=== PATIENT | female | born 1935 | race Caucasian/White ===

== ENCOUNTER 2016-11-17 13:28 | Emergency (ER) | payer MEDICARE, BC ==
[2016-11-17 14:13] VITALS: BP 146/74
--- NOTE | 2016-11-17 14:26 | UC ---
Skin Complaint HPI - HPI Summary HPI Summary: 2 DAYS OF SWELLING UNDER LEFT SIDE OF JAW. SEEMS TO WORSEN AFTER EATING THEN CALMS DOWN. NO FEVER. PAIN IS MILD. NO DIFFICULTY SWALLOWING OR BREATHING. IS NOT TAKING ANY ANTIHISTAMINES OR DECONGESTANTS. - History of Current Complaint Chief Complaint: UCGeneralIllness Time Seen by Provider: 11/17/16 14:11 Stated Complaint: NECK SWELLING Hx Obtained From: Patient Onset/Duration: Gradual Onset, Lasting Days, Still Present Timing: Constant - BUT WORSENS AFTER EATING Onset Severity: Mild Current Severity: Mild Pain Intensity: 2 Pain Scale Used: 0-10 Numeric Location: Discrete - UNDER LEFT JAW Character: Swelling, Pain Aggravating: Touch, Other - EATING Alleviating: Nothing Associated Signs & Symptoms: Positive: Tenderness - Allergy/Home Medications Allergies/Adverse Reactions: Allergies Allergy/AdvReac Type Severity Reaction Status Date / Time No Known Allergies Allergy Verified 11/17/16 13:44 Review of Systems Constitutional: Negative Skin: Negative ENT: Other - SWELLING UNDER LEFT JAW Respiratory: Negative Cardiovascular: Negative Gastrointestinal: Negative All Other Systems Reviewed And Are Negative: Yes PMH/Surg Hx/FS Hx/Imm Hx Cardiovascular History Of: Reports: Hypertension - ON DAILY MEDS - Surgical History Surgical History: Yes Surgery Procedure, Year, and Place: YOUNG CHILD T&A [facility]. [place] [facility] [place] Family History Known Family History: Positive: Hypertension - Social History Alcohol Use: None Substance Use Type: None Smoking Status (MU): Never Smoked Tobacco Physical Exam Triage Information Reviewed: Yes Appearance: Well-Appearing, No Pain Distress, Well-Nourished Vital Signs: Initial Vital Signs Temp 97.8 F 11/17/16 13:44 Pulse 85 11/17/16 13:44 Resp 16 11/17/16 13:44 BP 146/74 11/17/16 13:44 Pulse Ox 100 11/17/16 13:44 Vital Signs Reviewed: Yes Eyes: Positive: Conjunctiva Clear ENT: Positive: Hearing grossly normal, Other: - MILDLY TENDER ENLARGED LEFT SUBMANDIBULAR SALIVARY GLAND Neck: Positive: Supple Respiratory: Positive: No respiratory distress, No accessory muscle use Cardiovascular: Positive: Pulses Normal Abdomen Description: Positive: Soft Musculoskeletal: Positive: No Edema Neurological: Positive: Alert Psychological: Positive: Age Appropriate Behavior Skin: Negative: rashes Course/Dx - Diagnoses Provider Diagnoses: LEFT SUBMANDIBULAR SIALADENITIS Discharge - Discharge Plan Condition: Stable Disposition: HOME Patient Education Materials: Sialoadenitis (ED) Referrals: Barbara Montano MD [Primary Care Provider] - If Needed Additional Instructions: SIALADENITIS/SIALOLITHIASIS (SALIVARY GLAND STONE) Salivary gland stones primarily are found in the three major salivary glands: parotid, submandibular, and sublingual. Eighty to 90 percent of stones arise from the submandibular glands. Dehydration, anticholinergic medications (such as antihistamines), and trauma are felt to predispose to the formation of stones. Sialolithiasis typically presents with pain and swelling, though painless swelling may occur. Conservative management is the initial mainstay of treatment in primary care; patients should be instructed to: - keep well hydrated - apply moist heat to the involved area - massage the gland, "milk" the duct - suck on tart hard candies to promote salivary flow (lemon drops). - ensure good oral hygiene Pain should be managed with NSAIDs or occasionally opioid analgesics. Anticholinergic medications should be discontinued when possible (eg. antihistamines, decongestants). Patients with symptoms persisting for more than a few days should be referred for specialist management. CALL ENT TODAY TO MAKE AN APPT FOR NEXT WEEK. IF YOUR SYMPTOMS RESOLVE OVER THE WEEKEND YOU CAN CANCEL YOUR APPT. ENT IN [place] [address] [facility] [phone]
== END 2016-11-17 14:37 | disposition home or self-care (01) ==
LOC: UCEAST 13:28
DX: K11.20 Sialoadenitis, unspecified (principal); I10 Essential (primary) hypertension; Z98.42 Cataract extraction status, left eye; Z98.41 Cataract extraction status, right eye
CPT/HCPCS: 99211; G0463

== ENCOUNTER 2017-04-25 04:27 | Emergency (ER) | payer MEDICARE, BC ==
[2017-04-25] MEDS ORDERED: NS 0.9% 1000 ML* 1,000 ML IV ONE (06:36)
[2017-04-25] MEDS ORDERED: Morphine INJ* 4 MG/ML 1 ML CARPUJECT IV ONE (07:05)
[2017-04-25] MEDS ORDERED: Ondansetron INJ* 2 MG/ML VIAL IV ONE (07:05)
--- NOTE | 2017-04-25 07:12 | ED ---
Lamine Sparks Rebecca, scribed for Rhys Nunes MD on 04/25/17 at 0603 . Abdominal Pain/Female - HPI Summary HPI Summary: Pt is an 82 y/o F BIBA who presents to ED c/o RLQ abdominal pain. Sx began at 0130 and pain is currently severe, ranked 8/10. Pain radiates to the R flank and is characterized as an ache in the flank, described as being "inside." Sx aggravated and alleviated by nothing, unchanged by movement. Additionally c/o N/ V and increased urinary frequency. Denies fever, dysuria, hematuria and dark urine. No PSHx on the abdomen. PMHx kidney stones - one episode about 35 years ago. - History of Current Complaint Chief Complaint: EDAbdPain Stated Complaint: RIGHT FLANK PAIN Hx Obtained From: Patient Onset/Duration: Lasting Hours, Still Present Severity Currently: Severe Pain Intensity: 8 Pain Scale Used: 0-10 Numeric Location: Discrete At: RLQ Radiates: Yes Radiates to: Flank - Right Aggravating Factor(s): Nothing Alleviating Factor(s): Nothing Associated Signs and Symptoms: Positive: Urinary Symptoms - increased urinary frequency, Nausea, Vomiting. Negative: Fever Allergies/Adverse Reactions: Allergies Allergy/AdvReac Type Severity Reaction Status Date / Time No Known Allergies Allergy Verified 11/17/16 13:44 PMH/Surg Hx/FS Hx/Imm Hx Cardiovascular History: Reports: Hx Hypertension - ON DAILY MEDS, Hx Peripheral Vascular Disease - ON DAILY MEDS, FOLLOWED BY DR [facility] History: Reports: Hx Kidney Stones Musculoskeletal History: Reports: Hx Arthritis - HANDS,, Other Musculoskeletal History - Hx OF PAIN IN LEG, SCIATIC NERVE, SEES CHIROPRACTOR MONTHLY Sensory History: Reports: Hx Cataracts - 2006 BILATERAL CATERACT EXTRACTION [facility] , Hx Contacts or Glasses - GLASSES, Hx Hearing Aid - BILATERAL, WILL NOT WEAR DAY OF SURGERY Opthamlomology History: Reports: Hx Cataracts - 2006 BILATERAL CATERACT EXTRACTION [facility], Hx Contacts or Glasses - GLASSES - Cancer History Hx Chemotherapy: No Hx Radiation Therapy: No - Surgical History Surgery Procedure, Year, and Place: YOUNG CHILD T&A [facility]. 2006 BILATERAL CATARACT EXTRACTION [facility] Hx Anesthesia Reactions: No - Immunization History Date of Influenza Vaccine: 03/26/2017 Infectious Disease History: No Infectious Disease History: Denies: History Other Infectious Disease, Traveled Outside the [place] in Last 30 Days - Family History Known Family History: Positive: Hypertension - Social History Alcohol Use: None Substance Use Type: Reports: None Smoking Status (MU): Never Smoked Tobacco Review of Systems Negative: Fever Positive: Abdominal Pain, Vomiting, Nausea Positive: frequency - Increased urinary frequency, flank pain - Right, other - Negative: Dark urine. Negative: dysuria, hematuria All Other Systems Reviewed And Are Negative: Yes Physical Exam - Summary Physical Exam Summary: Appearance: Well-appearing, Well-nourished Skin: Warm, dry Eyes: Normal ENT: Normal, moist mucous membranes Neck: Supple, nontender Respiratory: Clear to auscultation Cardiovascular: Normal, pulses are symmetrical and equal bilaterally Abdomen: Soft, mild tenderness to palpation of the RLQ, negative psoas, rovsing' s and obturator's signs, negative suprapubic tenderness to palpation Bowel: Present Musculoskeletal: Normal, Strength/ROM Intact Neurological: Normal, Alert, Oriented to Person Psychiatric: Normal Triage Information Reviewed: Yes Vital Signs On Initial Exam: Initial Vitals Temp Pulse Resp BP Pulse Ox 98.1 F 88 16 169/65 94 04/25/17 04:32 04/25/17 04:32 04/25/17 04:32 04/25/17 04:32 04/25/17 04:32 Vital Signs Reviewed: Yes - Chiquis Coma Scale Coma Scale Total: 15 Diagnostics - Vital Signs Vital Signs Temp Pulse Resp BP Pulse Ox 04/25/17 05:30 92 146/56 95 04/25/17 05:00 90 156/59 94 04/25/17 04:36 88 94 04/25/17 04:34 169/65 04/25/17 04:32 98.1 F 88 16 169/65 94 - Laboratory Result Diagrams: 04/25/17 06:55 Lab Statement: Any lab studies that have been ordered have been reviewed, and results considered in the medical decision making process. Abdominal Pain Fem Course/Dx - Diagnoses Provider Diagnoses: Abdominal pain Discharge - Discharge Plan Condition: Stable Disposition: OTHER Discharge Disposition Comment: signed out to Dr Her pending CT abd Referrals: Barbara Montano MD [Primary Care Provider] - The documentation as recorded by the Lamine lopez Rebecca accurately reflects the service I personally performed and the decisions made by , Rhys Nunes MD.
[2017-04-25 07:15] LABS: Hematocrit 40 % (35-47); Hemoglobin 13.4 g/dl (12.0-16.0); Mean Corpuscular HGB Conc 34 g/dl (31-36); Mean Corpuscular Hemoglobin 32 pg (27-31); Mean Corpuscular Volume 96 fL (80-97); Mean Platelet Volume 8 um3 (7.4-10.4); Red Blood Count 4.16 10^6/ul (4.0-5.4); Red Cell Distribution Width 14 % (10.5-15); White Blood Count 12.7 10^3/ul (3.5-10.8)
[2017-04-25 07:41] LABS: ALT 16 U/L (7-52); AST 15 U/L (13-39); Alkaline Phosphatase 60 U/L (34-104); Amylase 70 U/L (29-103); Anion Gap 7 mmol/L (2-11); BUN/Creatinine Ratio 23.5 (8-20); Blood Urea Nitrogen 27 mg/dL (6-24); CO2 Carbon Dioxide 28 mmol/L (22-32); Calcium 9.4 mg/dL (8.6-10.3); Chloride 104 mmol/L (101-111); EGFR African American 57.8 (>60); Glucose 129 mg/dL (70-100); Lipase < 10 U/L (11.0-82.0); Magnesium 2.1 mg/dL (1.9-2.7); Potassium 4.2 mmol/L (3.5-5.0); Sodium 139 mmol/L (133-145)
[2017-04-25 07:43] LABS: Troponin I 0.01 ng/mL (<0.04)
[2017-04-25] MEDS ORDERED: Iodixanol* (CONTRAST) 320 MG/ML 100 ML SDV IV ONE (07:48)
[2017-04-25 08:38] LABS: Urine Bacteria 3+ (Absent); Urine Bilirubin Negative (Negative); Urine Glucose Negative (Negative); Urine Nitrite Negative (Negative)
--- NOTE | 2017-04-25 08:39 | RAD ---
INDICATION: Right flank pain COMPARISON: None. TECHNIQUE: Single AP portable view of the chest was obtained. FINDINGS: Image quality is compromised due to the relative inferiority of a portable chest x-ray. The heart and mediastinum exhibit normal size and contour. The lungs are grossly clear. There is no evidence of a large pleural effusion. Visualized bones are normal for the patient's age. IMPRESSION: No radiographic evidence for acute cardiopulmonary abnormality on this portable chest x-ray.
--- NOTE | 2017-04-25 09:22 | RAD ---
INDICATION: RIGHT lower quadrant pain radiates to the RIGHT flank. COMPARISON: April 02, 2007 TECHNIQUE: Multidetector CT images were obtained from the lung bases to the ischial tuberosities with 76 mL Visipaque 320 IV and oral contrast. Multiplanar reformation. REPORT: Moderately large hiatal hernia with interval increase in size without mural thickening or perienteric inflammatory change. Associated mild compressive atelectasis at the medial lung bases as well as anterior displacement of the heart. Negative for cardiomegaly or pericardial effusion. Small number of grossly unchanged simple cysts of the liver with dominant 1.8 cm cyst at the RIGHT posterior hepatic segment at the dome and 1.2 cm cyst in the subcapsular anterior margin of the LEFT lateral hepatic segment adjacent to the fissure for the ligamentum teres. No suspicious hepatic lesions or biliary dilatation. Normal variant phrygian cap at the gallbladder. Suggestion of stones within the fundus of the gallbladder. Unremarkable pancreas and spleen. Aside from the hiatal hernia the upper GI is unremarkable. Unremarkable small bowel and retrocecal appendix. Severe colonic diverticulosis primarily at the sigmoid colon without findings of acute diverticulitis. Negative for ascites, free air, or significant hernias. Normal adrenal glands. Mild RIGHT hydronephrosis is traced to a 3 mm stone at the proximal ureter. Mild LEFT hydroureteronephrosis without definitive LEFT ureteral stone. Suggestion of focal soft tissue density at the distal segment of the LEFT ureter concerning for a potential uroepithelial lesion reference axial images 60-63. Mild RIGHT asymmetric perinephric inflammatory stranding. No suspicious focal renal lesions. Unremarkable partially distended urinary bladder. 3.8 cm fibroid at the anteverted uterus without gross change. Unremarkable adnexal regions. Negative for lymphadenopathy. Atherosclerotic plaque without aneurysm of the abdominal aorta or iliac arteries. Physiologic distention of the IVC. Unchanged bone island at the RIGHT sacral ala. Negative for suspicious focal osseous lesions. IMPRESSION: 1. Mild RIGHT hydronephrosis is traced to a 3 mm stone at the proximal ureter. 2. Suggestion of focal soft tissue density at the distal segment of the LEFT ureter concerning for a potential uroepithelial lesion reference axial images 60-63. Consider ureteroscopy or CT urogram for further assessment.
[2017-04-25] MEDS ORDERED: Ciprofloxacin TAB* 500 MG PO ONE (10:17)
[2017-04-25 10:33] VITALS: BP 136/71
--- NOTE | 2017-04-26 08:25 | ED ---
Puma Sparks Angela, scribed for Holden Mckeon MD on 04/25/17 at 0705 . Progress - Progress Note Progress Note: Pt is an 82 y/o female BIBA who presents to [facility] c/o RLQ abdominal pain that began at 0130. This pt was signed out from Dr. Nunes, pending disposition, awaiting chest XR and CT abdomen/pelvis. Pt has PMHx of kidney stones (a very long time ago). She is unsure if this pain feels similar to prior episode of kidney stones. Pt states that she was feeling nauseous and vomited [employer]. She denies fever. Pt will be discharged to home in stable condition with a diagnosis of kidney stones and UTI. - Results/Orders Results/Orders: Chest XR, per radiologist: IMPRESSION: no radiographic evidence for acute cardiopulmonary abnormality on this portable chest x-ray. ED physician has reviewed this radiology report and agrees. CT Abdomen/Pelvis, per radiologist: IMPRESSION: 1. Mild RIGHT hydronephrosis is traced to a 3 mm stone at the proximal ureter. 2. Suggestion of focal soft tissue density at the distal segment of the LEFT ureter concerning for a potential uroepithelial lesion reference axial images 60 -63. Consider ureteroscopy or CT urogram for further assessment. ED physician has reviewed this radiology report and agrees. Re-Evaluation - Re-Evaluation First Eval Re-Evaluation Time: 07:59 Comment: Pt reports feeling better after pain medication. On physical exam, pt has no tenderness right now. Pt is sitting comfortably in the stretcher, drinking contrast. Second Eval Re-Evaluation Time: 10:18 Comment: I reviewed the XR and CT abdomen/pelvis results with the pt. Course/Dx - Course Course Of Treatment: Pt is an 82 y/o female BIBA who presents to [facility] c/o RLQ abdominal pain that began at 0130. This pt was signed out from Dr. Nunes, pending disposition, awaiting chest XR and CT abdomen/pelvis. Chest XR shows no radiographic evidence for acute cardiopulmonary abnormality on this portable chest x-ray. CT abdomen/pelvis reveals 1. Mild RIGHT hydronephrosis is traced to a 3 mm stone at the proximal ureter. 2. Suggestion of focal soft tissue density at the distal segment of the LEFT ureter concerning for a potential uroepithelial lesion reference axial images 60-63. Consider ureteroscopy or CT urogram for further assessment. UA is consistent with a UTI. Pt will be discharged with Ciprofloxacin and Norborne. She is advise to follow up with her PCP. - Diagnoses Provider Diagnoses: Kidney stones, Urinary tract infection The documentation as recorded by the Puma lopez Angela accurately reflects the service I personally performed and the decisions made by , Holden Mckeon MD.
--- NOTE | 2017-04-27 13:40 | PN ---
Progress Note - Progress Note Date of Service: 04/25/17 Note: patient preliminary urine culture results show >100,000 of e.coli. diagnosed and treated for UTI. given cipro. will wait for final culture results to check susceptibility. no further change required at this time.
== END 2017-04-25 10:33 ==
LOC: ED 04:27
DX: N39.0 Urinary tract infection, site not specified (principal); R10.31 Right lower quadrant pain; R11.2 Nausea with vomiting, unspecified; N20.0 Calculus of kidney; Z86.79 Personal history of other diseases of the circulatory system
CPT/HCPCS: 36415; 71010; 74177; 80053; 81003; 81015; 82150; 83605; 83690; 83735; 84484; 85025; 85610; 85730; 86850; 86900; 86901; 87077; 87086; 87186; 96374; 96375; 99283; A9270-GY; J2270; J2405; Q9967

== ENCOUNTER 2018-05-29 06:39 | Day surgery (SDC) | payer MEDICARE, BC ==
--- NOTE | 2018-05-19 20:26 | HP ---
CC: Dr. Barbara Montano * HISTORY AND PHYSICAL: DATE OF PLANNED ADMISSION AND SURGERY: 05/29/18 HISTORY OF PRESENT ILLNESS: Mrs. Natarajan is an 83-year-old white female who is admitted with left hydronephrosis and distal left ureteral calculus for cystoscopy, left ureteroscopy, laser lithotripsy and left ureteral stent insertion. I had seen Mrs. Natarajan back 1 year ago referred [address] Dr. Montano because of a recent episode of right renal colic. At that time, she was evaluated in the emergency room for right renal colic and had a noncontrast CT of the abdomen and pelvis, which showed mild right hydronephrosis and a 4 mm calculus in the proximal right ureter. There was also moderate left hydronephrosis with tortuosity of the ureter that was dilated all the way to the level of the ureterovesical junction. At that time, she was totally asymptomatic from her left side. The patient was followed in the office because of the above finding and had followup renal ultrasounds, which showed resolution of the hydronephrosis on both sides. The patient continued to be asymptomatic and was seen for a follow- up routine visit recently. She had a renal ultrasound, which showed recurrence of the left hydroureteronephrosis. She then had CT urogram, which showed normal right kidney and right ureter. There was left hydroureteronephrosis with tortuosity of the ureter and a 6 mm calculus in the distal left ureter. There were no lesions seen in the left ureter at the level of the obstruction. There was a 4 cm fibroid that was pushing against the left base of the bladder and the fibroid was unchanged compared to the study one year ago. The patient had had a CT scan of the abdomen and pelvis in March 2007. I compared the study with the present study and no hydronephrosis was noted on either side. Because of the findings of Lt hydroureteronephrosis, and the distal Lt ureteral calculus, the patient is admitted for the above procedure. The patient denies any other past history of renal diseases or of any voiding symptoms. She denies any episodes of gross hematuria or urinary tract infections and denies any irritative bladder symptoms or feeling of pelvic pressure or any vaginal bleeding. She is a nonsmoker. PAST MEDICAL HISTORY: She is in good health for her age. She is hypertensive, maintained on ramipril. She has history of superficial phlebitis and has been followed by Dr. Pelayo, who has maintained her on dipyridamole. She has not had any recurrence of her superficial phlebitis. There is no history of any deep vein thrombosis. She has hyperlipidemia, maintained on atorvastatin. ALLERGIES: She denies any allergies to medications. PHYSICAL EXAMINATION GENERAL: Pleasant and healthy looking white female, who looks good for her age. VITAL SIGNS: Blood pressure 110/70, pulse of 80. LUNGS: Normal. HEART: Normal. ABDOMEN: Normal. She has no CVA tenderness. IMPRESSION: 1. Asymptomatic left hydroureteronephrosis with a 6 mm calculus in the distal left ureter. It is not clear whether the calculus is the cause of the obstruction. 2. A 4 cm uterine fibroid impinging on the left base of the bladder unchanged in appearance from the CT scan one year ago. PLAN: Plan is for cystoscopy, left ureteroscopy, laser lithotripsy and left ureteral stent placement. The procedure will be both for diagnostic and therapeutic purposes. I discussed the above plans in detail with the patient and her daughter and all their questions were answered. [id number]/[facility] #: [id number] DIANN
[~2018-05-29 06:39] MED LIST: Buffered Lidocaine 0.9% SYRIN* 5 ML/SYR SYRINGE INTRADERM ONE; Dexamethasone IV* 4 MG/ML 1 ML (4 MG) IV SLOW PU ONE; Famotidine IV* 10 MG/ML 2 ML (20 mg) IV ONE
[2018-05-29] MEDS ORDERED: Buffered Lidocaine 0.9% SYRIN* 5 ML/SYR SYRINGE ONE (07:51)
[2018-05-29] MEDS ORDERED: cefTRIAXone(*) 1 GM ADVAN/BAG ONE (07:51)
[2018-05-29] MEDS ORDERED: Famotidine IV* 10 MG/ML 2 ML (20 mg) ONE (07:51)
[2018-05-29] MEDS ORDERED: Dexamethasone IV* 4 MG/ML 1 ML (4 MG) ONE (07:51)
[2018-05-29] MEDS ORDERED: fentaNYL* 50 MCG/ML 2 ML VIAL (100 MCG VIAL) ONE (08:02)
[2018-05-29] MEDS ORDERED: Lidocaine 2% PF * 5 ML VIAL ONE (08:09)
[2018-05-29] MEDS ORDERED: Propofol* 10 MG/ML 20 ML BTL IV PUSH ONE (08:09)
[2018-05-29] MEDS ORDERED: Iohexol 180 (CONTRAST) 10 ML SDV IV ONE ×2 (08:31→09:13)
[2018-05-29] MEDS ORDERED: Ondansetron INJ* 2 MG/ML VIAL ONE (09:10)
[2018-05-29] MEDS ORDERED: PROCHLORPERAZINE INJ 5 MG/ML 2 ML VIAL IV PRN (09:12)
[2018-05-29] MEDS ORDERED: DiMENhydriNATE IV* 50 MG/ML VIAL IV PUSH PRN (09:12)
[2018-05-29] MEDS ORDERED: oxyCODONE/Acetamin 5/325 MG* TAB PO PRN (09:12)
[2018-05-29] MEDS ORDERED: fentaNYL* 50 MCG/ML 2 ML VIAL (100 MCG VIAL) IV PRN (09:12)
[2018-05-29] MEDS ORDERED: Acetaminophen TAB* 325 MG PO PRN (09:12)
[2018-05-29] MEDS ORDERED: Ibuprofen TAB* 400 MG PO PRN (09:12)
[2018-05-29] MEDS ORDERED: Naloxone* 0.4 MG/ML 1 ML VIAL IV PRN (09:12)
[2018-05-29] MEDS ORDERED: Phenylephrine INJ* 10 MG/ML 1 ML VIAL (10 MG) ONE (09:12)
[2018-05-29] MEDS ORDERED: Labetalol IV* 5 MG/ML 20 ML VIAL IV PUSH PRN (09:14)
[2018-05-29] MEDS ORDERED: hydrALAZINE IV* 20 MG/ML VIAL IV SLOW PU PRN (09:15)
[2018-05-29 11:19] VITALS: BP 187/99
--- NOTE | 2018-05-30 03:28 | OP ---
CC: Barbara Montano MD OPERATIVE REPORT: DATE OF OPERATION: 05/29/18 DATE OF : 31 SURGEON: Elijah Colby MD ANESTHESIOLOGIST: Dr. Hilliard. ANESTHESIA: General. PRE-OP DIAGNOSES: 1. Left hydroureteronephrosis. 2. Distal left ureteral calculus. POST-OP DIAGNOSES: 1. Left hydroureteronephrosis. 2. Distal left ureteral calculus. 3. Distal left ureteral lesion. OPERATIVE PROCEDURE: 1. Cystoscopy. 2. Extraction of bladder calculus (5 mm). 3. Left retrograde pyelography. 4. Left ureteroscopy and extraction of distal left ureteral calculus (6 mm). 5. Biopsy and washings of lesion of distal left ureter. 6. Left ureteral stent insertion (8-Finnish). INDICATION FOR PROCEDURE: Ms. Natarajan is an 83-year-old white female, who had a CT of the abdomen and pelvis done 1 year ago because of a right renal colic, and was found to have a small distal right ureteral calculus, and asymptomatic left hydroureteronephrosis with the obstruction in the distal left ureter. The right ureteral calculus passed spontaneously. The patient had been totally asymptomatic. She was reevaluated for the left hydronephrosis with followup renal ultrasounds, which showed resolution of the hydronephrosis. She was continued to be observed, and a recent renal ultrasound showed that the left hydronephrosis recurred. CT urogram confirmed the left hydronephrosis, and there was a 6 mm calculus noted in the distal left ureter. A 4 to 5 cm fibroid uterus was noted impinging on the left base of the bladder and the size of the fibroid was unchanged compared to the CT a year ago. The patient has been totally asymptomatic from her kidneys and from her voiding and has had no hematuria. She is a nonsmoker. Because of the above history and findings, the patient was admitted for the above procedure. PATHOLOGY AT CYSTOSCOPY: The bladder mucosa looked normal. The ureteral orifices looked normal. There were no suspicious bladder lesions seen. A 5 mm calculus that had the appearance of a calcium oxalate stone was noted in the bladder. Upon left retrograde pyelography, there was a 1 cm narrowed segment of the distal ureter about 2 cm above the level of the orifice. There was dilatation and tortuosity of the ureter proximal to the obstruction and there was moderate- to- severe left hydronephrosis. Upon left ureteroscopy, there was edema and hyperemia of the narrow segment of the ureter noted on retrograde. The appearance of the mucosa was either a ureteral tumor or edema from the presence or recent passage of a stone. A 6 mm calculus, grayish in color, was noted just proximal to the level of the obstruction. The rest of the ureter was dilated, but the mucosa looked normal and no other lesions were seen. The renal pelvis was inspected and looked normal except for the hydronephrosis. DESCRIPTION OF PROCEDURE: After successful general anesthesia, the patient was placed in the lithotomy position and was prepped and draped for a cystoscopy. Cystoscopy was performed. The bladder was inspected and the above findings were noted. The bladder calculus was then extracted and sent for stone analysis. A flexible-tip guidewire was then introduced into the distal left ureter and an open-ended catheter was positioned just proximal to the orifice. Retrograde pyelography was performed demonstrating the distal ureteral stricture and the hydroureteronephrosis. A Glidewire was then passed into the right ureter and negotiated the tortuosity and the Glidewire was positioned in the renal pelvis. The Glidewire was exchanged with a guidewire. A size 6.5 semi-rigid ureteroscope was then introduced inside the bladder. A flexible-tip basket was introduced through the port of the ureteroscope and its flexible tip was introduced into the left orifice alongside the guidewire. That allowed the atraumatic introduction of the ureteroscope into the ureter. The narrow segment of the ureter, and the pathology in its mucosa as described earlier, were noted. The ureteroscope was then passed through the narrow segment of ureter. The ureteral calculus was identified. It was engaged in the basket and was extracted and sent for stone analysis. The ureteroscope was then reintroduced into the whole ureter inspecting its wall. The renal pelvis was also entered and inspected and no lesions were seen. The ureteroscope was then pulled out to the level of the ureteral narrowing. Several small biopsies were obtained with biopsy forceps. Washings were then obtained from that segment of ureter and sent for cytology. A size 8-Finnish stent was then placed with the proximal end coiling in the renal pelvis and the distal end coiling inside the bladder. There was good drainage of contrast from the kidney and no extravasation. The patient tolerated the procedure well and left the operating room in good condition. The plan is to await the result of the ureteral biopsy and washings. If they are benign, it is likely that the pathology noted in the ureter is secondary to edema from the recent passage of stone and in that case, it should resolve with the stent. The stent will be removed in about 3 weeks and we will observe for possible recurrence of the hydronephrosis. [id number]/[facility] #: [id number] DIANN
== END 2018-05-29 11:25 | disposition home or self-care (01) ==
LOC: OR 06:39
PROVIDERS: ATTEND Urology
DX: N13.2 Hydronephrosis with renal and ureteral calculous obstruction (principal); N21.0 Calculus in bladder; N28.89 Other specified disorders of kidney and ureter; I10 Essential (primary) hypertension; E78.5 Hyperlipidemia, unspecified; I80.9 Phlebitis and thrombophlebitis of unspecified site
CPT/HCPCS: 74420; 82365; 88112; 88300; 88305; C1876; J0696; J1100; J2405; J2704; J3010